=== PATIENT | male | born 1960 | race Caucasian/White ===

== ENCOUNTER 2017-04-15 08:30 | Inpatient (IN) | payer OTHER, MEDICARE ==
[~2017-04-15] VITALS: Ht 198.1 cm; Wt 110.1 kg
[~2017-04-15 08:30] MED LIST: ASPI81CH CHEW; GABA600T PO; METO25TA6 PO; SIMV20TA PO
[2017-04-18] MEDS ORDERED: OXYC-433 PO (11:03)
[2017-04-18] MEDS ORDERED: CARI350T25 PO (11:03)
[2017-04-18] MEDS ORDERED: CYCL1TAB29 PO (11:03)
[2017-04-19] MEDS ORDERED: POVIDONE IODINE 5% (ANTISEPSIS KIT) 4 APPLICATIONS EACH NARE PRN (07:00)
[2017-04-19] MEDS ORDERED: CHLORHEXIDINE GLUCONATE 2 % 1 PACK (2 CLOTHS) TOPICAL PRN (07:00)
[2017-04-19] MEDS ORDERED: LACTATED RINGER'S 1000 ML IV PRN (07:00)
[2017-04-19] MEDS ORDERED: SODIUM CHLORID 0.9% 500 ML IV PRN (07:00)
[2017-04-19] MEDS ORDERED: METOPROLOL TARTRATE 25 MG TAB PO PRN (07:00)
[2017-04-19] MEDS ORDERED: INSULIN HUMAN REGULAR 1,000 UNITS/10 ML VIAL SQ PRN (07:00)
[2017-04-19] MEDS ORDERED: THROMBIN (TOPICAL) 5,000 UNIT VIAL ONE (07:06)
[2017-04-19] MEDS ORDERED: GELFOAM SIZE 100 ONE (07:06)
[2017-04-19] MEDS ORDERED: ceFAZolin 2 GM PREMIX 50 ML ONE ×2 (07:06→12:36)
[2017-04-19] MEDS ORDERED: BUPIVACAINE HCL PF 0.5% 30 ML VIAL ONE (07:06)
[2017-04-19] MEDS ORDERED: GENTAMICIN SULFATE 80 MG/2 ML VIAL ONE (07:07)
[2017-04-19] MEDS ORDERED: VANCOMYCIN HCL 1000 MG ON-CALL/NS 250 ML IV SCH ×2 (07:15)
[2017-04-19 07:17] VITALS: BP 145/88; PULSE 76; RESP 18; TEMP 98.2; O2SAT 96
[2017-04-19] MEDS ORDERED: MIDAZOLAM HCL 5 MG/5 ML VIAL ONE (07:54)
[2017-04-19] MEDS ORDERED: ACETAMINOPHEN 1000 MG/100 ML VIAL IV ONE (07:54)
[2017-04-19] MEDS ORDERED: ARTIFICIAL TEARS OPTH OINT 3.5 APPLIC/3.5 GM TUBO ONE (07:54)
[2017-04-19] MEDS ORDERED: FAMOTIDINE 20 MG/2 ML VIAL ONE (07:54)
[2017-04-19] MEDS ORDERED: fentaNYL CITRATE 250 MCG/5 ML AMP ONE ×5 (07:54→14:10)
[2017-04-19] MEDS ORDERED: ceFAZolin INJ 1,000 MG VIAL IV ONE ×2 (08:54→12:55)
--- NOTE | 2017-04-19 09:52 | PD.CONS ---
[facility] Service Urology Consult Requested By Primary Care Physician No Primary Care Physician Diagnosis: History of Present Illness 57-year-old male admitted to undergo elective laminectomy by . Urology was consult and after the nursing staff placed a traumatic Valencia catheter. The patient is currently under general anesthesia and I am unable to take a history and physical at this time. A Valencia was advanced and clear urine was noted to drain. There was blood noted around the catheter at the urethral meatus. Review of Systems ROS Limitations: Intubated Past Family Social History Past Medical History Unable to obtain due to under general anesthesia Past Surgical History Unable to obtain due to under general anesthesia Allergies: Coded Allergies: No Known Allergies (Unverified , 04/19/17) Family History Unable to obtain due to under general anesthesia Social History Unable to obtain due to under general anesthesia Physical Exam Vital Signs Date Time Temp Pulse Resp B/P Pulse Ox O2 Delivery O2 Flow Rate FiO2 04/19/17 07:17 98.2 76 18 145/88 96 Physical Exam GENERAL: This is a well-nourished, well-developed patient, in no apparent distress. SKIN: No rashes, ecchymoses or lesions. Cool and dry. HEAD: Atraumatic. Normocephalic. No temporal or scalp tenderness. EYES: Pupils equal round and reactive. No scleral icterus. No injection or drainage. ENT: Nose without bleeding, purulent drainage or septal hematoma. Throat without erythema, tonsillar hypertrophy or exudate. Airway patent and intubated NECK: Trachea midline. No JVD or lymphadenopathy. Supple, nontender, no meningeal signs. CARDIOVASCULAR: Regular rate and rhythm without murmurs, gallops, or rubs. RESPIRATORY: Clear to auscultation. Breath sounds equal bilaterally. No wheezes , rales, or rhonchi. GASTROINTESTINAL: Abdomen soft, non-tender, nondistended. No hepato-splenomegaly , or palpable masses. No guarding. GENITOURINARY: Uncircumcised phallus with blood at the meatus with Valencia catheter in position draining pink tinged urine. MUSCULOSKELETAL: Extremities without clubbing, cyanosis, or edema. No joint tenderness, effusion, or edema noted. No calf tenderness. Negative Homans sign bilaterally. NEUROLOGICAL: Cremasterics reflex intact Laboratory Tests Test 04/19/17 07:15 Blood Type A POSITIVE Antibody Screen NEGATIVE Blood Bank Comment Assessment and Plan Assessment and Plan 57-year-old male admitted to undergo laminectomy by Dr. Hutchins. Traumatic Valencia placement in OR. Valencia catheter now draining clear urine and in good position. Maintain Valencia catheter for 1 week to allow for urethral healing. Patient may follow up in the office in one week if he is discharged prior to this time for a void trial. Thank you for the consult and for allowing me to participate in the care of this patient. Elfego Shane DO Apr 19, 2017 09:52
[2017-04-19] MEDS ORDERED: MORPHINE SULFATE 4 MG/ML INJ IV PUSH PRN (10:00)
[2017-04-19] MEDS ORDERED: ACETAMINOPHEN 325 MG TAB PO PRN (10:00)
[2017-04-19] MEDS ORDERED: SODIUM CHLORIDE 0.9% FLUSH 5 ML FLUSH IVF PRN (10:00)
[2017-04-19] MEDS ORDERED: KETAMINE HCL 500 MG/5 ML VIAL ONE (10:42)
[2017-04-19] MEDS ORDERED: PHENYLEPH/NS 1000 MCG/10 ML SYR IV ONE (12:00)
[2017-04-19] MEDS ORDERED: LACTATED RINGER'S 1000 ML INJ 2,000 ML IV ONE (12:00)
[2017-04-19] MEDS ORDERED: ONDANSETRON HCL 4 MG/2 ML VIAL IV PUSH ONE (12:00)
[2017-04-19] MEDS ORDERED: PROPOFOL 200 MG/20 ML AMP IV ONE (12:00)
[2017-04-19] MEDS ORDERED: ceFAZolin INJ 1,000 MG VIAL ONE (12:36)
[2017-04-19] MEDS ORDERED: DO NOT ADM ANY ANTICOAGULANT DRUGS PRN (13:59)
--- NOTE | 2017-04-19 14:02 | RADRPT ---
EXAM DATE/TIME: 04/19/2017 10:08 [place] COMPARISON: No previous studies available for comparison. INDICATIONS : Post-op L1-L2 posterior lumbar fusion. MEDICAL HISTORY : None. SURGICAL HISTORY : None. ENCOUNTER: Initial ACUITY: 1 day PAIN SCORE: Non-responsive. LOCATION: Lumbar spine. FINDINGS: Multiple intraoperative view examination was performed. There is a fusion I suspect at L2-3 with inte rpedicular screws bilaterally. CONCLUSION: Unremarkable limited examination of the lumbar spine status post fusion at L2-3. Geovanni Fox MD on April 19, 2017 at 13:59 Board Certified Radiologist. This report was verified electronically.
[2017-04-19] MEDS ORDERED: *MEPERIDINE 25 MG INJ VIAL PERIprocedural Use ONLY ONE (14:11)
[2017-04-19] MEDS ORDERED: *morphine SULFATE 8 MG/ML PERIprocedure ONLY ONE ×2 (14:20→14:36)
[2017-04-19] MEDS: NS + KCL 20 MEQ INJ 1,000 ML IV SCH ×2 (14:31→21:52)
[2017-04-19] MEDS: CARISOPRODOL 350 MG TAB PO SCH ×2 (14:56→18:20)
[2017-04-19] MEDS: GABAPENTIN 300 MG CAP PO SCH ×2 (14:56→18:20)
--- NOTE | 2017-04-19 15:01 | PD.OP ---
Operative Report Date of Surgery: Apr 19, 2017 Preoperative Diagnosis: Severe lumbar spondylosis Postoperative Diagnosis: Severe lumbar spondylosis Procedure: Minmally invasive L1-L2 laminectomy, interbody arthrodhesis using PEEK cage and autologous bone graft, L1-L2 instrumental fixation using transpedicular screws and rods, L1-L2 posterolateral fusion using autologous bone graft and demineralized bone matrix. Microsurgical dissection Anesthesia: GENERAL Surgeon: Hai Hutchins Mental Telepathist(s): ALBERTO MANUEL Operation and Findings: INDICATIONS FOR THE SURGICAL PROCEDURE Me Escalona is a 57 year-old male who presented with intractable mechanical back pain and tamica evidence of L2 lower extremity radiculopathy. He had severe spondylosis with collapse of the disk L1-2 and a disk protusion with significant facet arhtropathy. He failed maximum nonsurgical management including multiple modalities of conservative treatment as well as pain management interventions by an interventional pain specialist. A surgical decompression and arthrodhesis were indicated as a last resort. The [id number] details of the procedure, indications, alternatives, risks and potential complications were fully discussed with the patient. The patient fully understood. All the questions were answered. No guarantees were given. The patient voiced requesting the procedure and provided informed consents. The patient was offered the alternative of delaying the procedure and continuing with nonsurgical management. DETAILS OF THE SURGICAL PROCEDURE Prior to the procedure, the surgical incision was marked in the preoperative surgical holding room, and the procedure, risks, and potential complications revisited with the patient. Placement of electrodes for intraoperative neurophysiological monitoring was completed. The patient was taken to the operative room, and following induction of general anesthesia, endotracheal intubation was performed. A Valencia catheter, bilateral BELTRAN hose and sequential compression devices were placed and kept throughout the procedure. The patient was positioned prone, over a Layo table over a bolsters. All pressure in the preoperative surgical holding room points were carefully padded with eggcrate and gel mattress. The eyes were tapped shut after ointment was applied by the anesthesiologist to prevent corneal abrasion. A Sandra hugger was placed over the expossed lower body to maintain control of the core body temperature. The electrophysiological team placed the needles and electrodes in their proper location and baseline SSEP's and EMG potentials were registered. The entrance to each pedicles was marked using a C arm. The lumbar region was prepped and draped in the usual sterile fashion. The surgical procedure was performed in several steps as follow: SURGICAL APPROACH Once the patient was positioned, a localizing cross-table lateral x-ray was performed with a C-arm. Two paramedian small incisions were outlined on the skin approximately 3cm from the midline. The skin incisions were made with a # 10 blade. Small bleeders were controlled with the cautery. The dissection was then carried out into deper planes and through the thoracolumbar fascia with a Bovie. The intermuscular septum was identified and the myscles were blunted dissected along the septum. The facets and transverse process of L1-L2 were exposed and the proper anatomical landmarks were identidied. A microsurgical self-retaining retractor was placed on the incision, and a localizing lateralizing cross-table x-ray was performed with an instrument underneath a lamina of the lumbar spine. INSTRUMENTAL FIXATION At this point in the procedure, placement of bilateral transpedicular screws was necessary for stabilization of the spine. Initially, the entry point for the screw was selected anatomically at the junction of the facet, with the transverse process, and the pars interarticularis at L1 and L2. This was started with a Giamshetti needle followed by the use of a patricio wire. A tap was used to create the threads for the screws. Finally bilateral transpedicular screws were carefully placed bilaterally at L1 and L2 under fluoroscopic visualization. An appropriate purchase was achieved with all screws. The position of each screw was assessed anatomically with an AP, lateral , oblique Xrays. An intraoperative scan view of the spine was then performed using the iso-centric c-arm. Each screw was then assessed electrophysiologically stimulating each screw with a nerve stimulator. SURGICAL DECOMPRESSION There was significant mass effect with compression of the neural structures. In order to relieve neural compression, it was necessary to perform a decompressive laminectomy, with decompression of the spinal canal and bilateral lateral recesses. Note that the scope of such decompression was significantly more extensive than the minimal exposure necessary to perform an interbody fusion, as there was extreme facet arthropathy with near complete collapse of the disk spaces and severe stenosis cause by the hyperthrophic joint facets. At this point of the procedure the operative microscope was draped in the usual sterile fashion and brought to the field. The rest of the surgical procedure was performed using microdissection technique with the exception of the closure. Under the operating microscope, a decompressive laminectomy was carried out at L1-L2. as follow: The laminae, base of the spinous processes and facets were carefully drilled exposing the ligamentum flavum. The facets were abnormal with severe spondylolisthesis and gross mechanical instability. A disk protusion was compressing the neural structures and exiting nerve roots. A near complete facetectomy was necessary resulting in further mechanical instability. The ligamentum flavum appeared hypertrophic, resulting on mass effect on the dorsal surface of the neural structures. The superior free border of the ligamentum flavum was elevated with a ligament dissector and the ligamentum flavum was removed with a 3 and 4 mm Kerrison forceps. The ligament was very adherent to the dural sac and during the dissection, and extreme care was taken during the dissection. The exiting nerve roots were identified, and a wide foraminotomy was performed with a Kerrison in their trajectory towards the neural foramen. Epidural veins located laterally to the dural sac were coagulated with the bipolar cautery, and then incised using microscissors. Gentle medial retraction of the dural sac allowed me to expose the disc space for the discectomy. Upon completion of the discectomy, an excellent decompression of the neural structures was achieved. Increased motion was noted consistent with mechanical instability. INTERBODY ARTHRODHESIS In order to correct the narrowing of the disk space and maintain distraction of the space, and to achieve a solid interbody fusion, it was necessary the insertion of an interbody device into the disk space. Otherwise, the disk space would collapse, compromising the result of the surgical procedure. At this point of the procedure, the annulus fibrosus of the disk was carefully coagulated with a bipolar cautery and incised using an 11 bladed knife. Then, a microdiscectomy was carried out in a standard fashion using a combination of straight and up-biting pituitary forceps. A reverse angle curette was applied underneath the posterior longitudinal ligament, and used to push the disk fragments into the disk space, so they can be safely removed with a pituitary forceps. Once the discectomy was completed, it was necessary to decorticate the endplates, in order to eliminate the cartilaginous endplate and to expose healthy bone appropriate to perform the interbody fusion. The endplates at L1 and L2 were then thoroughly decorticated using increasing size bone noelle and ring curets, eliminating the cartilaginous fragments from both, the superior and inferior endplates. A disk space distractor was applied to the pedicle screws and gentle distraction was applied. This maneuver was assisted by the use of a disk distractor. Increased motility was noted at the disk, which was consistent with instability due to facet arthropathy. Once a thorough preparation of the disk space was achieved, the disk space was irrigated with antibiotic solution, and the interbody fusion was performed by carefully impacting an expandable PPEK cage filled with autologous iliac crest bone graft. The cage was carefully expanded. A solid position of the cage with good purchase was achieved. The position of the cage was assessed anatomically with a probe and radiologically with the C-arm. POSTEROLATERAL FUSION The posterolateral fusion is a critical component to the procedure, to prevent future fatigue and failure of the instrumental fixation. Initially, the transverse processes of the vertebral bodies, lateral surface of the facets and the lateral gutters of the spine were carefully cleaned, eliminating all soft tissue and muscle attachments. The area was then irrigated with a large amount of antibiotic solution. Subsequently, the transverse processes, lateral surface of the facets, and lateral gutters of the spine at L1 and L2 were thoroughly decorticated using the TPS drill with a 5mm cutting sylvie, exposing cancellous bone, in preparation for the posterolateral fusion. The incision was again irrigated with antibiotic solution. Then, the posterolateral fusion was then performed by carefully packing the lateral gutters of the spine at L4-L5 with autologous iliac crest bone combined with demineralized bone matrix. I packed as much bone as possible. COMPLETION OF THE INSTRUMENTATION AND CLOSURE The rods were brought to the field, applied to all the screws, and the screw caps were sequentially applied. Compression was performed between the pedicle screws, and final tightening of the screws was completed using a torque wrench. The incision was again thoroughly irrigated with several liters of antibiotic solution, and hemostasis secured with the bipolar cautery. A Valsalva Maneuver performed by the anesthesiologist failed to show any evidence of cerebrospinal fluid leak or bleeding. A 7 mm Layo-Grace drain was left in the epidural space and externalized through a separate stab incision. The incision was then closed in planes. 0 Vicryl was used in an interrupted fashion to close the thoracolumbar fascia and the superficial fascia. The subcutaneous tissue was then approximated using 3-0 Vicryl in an interrupted fashion. Special care was taken to avoid space. The skin was then closed with 4-0 Vicryl in a running, subcuticular fashion. Dermabond was applied to the skin. Each plane of closure was irrigated with antibiotic solution. At the end of the procedure the sponge, needle and instrument counts were all correct. Estimated blood loss was 250 cc. No blood transfusion was given. The entire procedure was performed using continuous electrophysiological monitoring of the somatosensorial evoked potentials and EMG. The patient received prophylactic antibiotics. The patient was then extubated and transferred to the recovery room in stable condition. Hai Hutchins MD Apr 19, 2017 15:01
[2017-04-19] MEDS ORDERED: OXYC-433 PO (15:24)
[2017-04-19] MEDS ORDERED: ceFAZolin 2 GM PREMIX 50 ML IV SCH (17:00)
[2017-04-19] MEDS: MORPHINE SULFATE 4 MG/ML INJ IV PUSH PRN ×2 (19:55→23:27)
[2017-04-19 20:00] VITALS: BP 128/77; PULSE 97; RESP 20; TEMP 99.2; O2SAT 95
[2017-04-19] MEDS ORDERED: NALOXONE HCL 0.4 MG/ML AMP IV PRN (20:15)
[2017-04-19] MEDS: SODIUM CHLORIDE 0.9% FLUSH 5 ML FLUSH IVF SCH (21:51)
[2017-04-19] MEDS: CYCLOBENZAPRINE HCL 10 MG TAB PO SCH (21:51)
[2017-04-19] MEDS: ceFAZolin 2 GM PREMIX 50 ML IV SCH (21:51)
[2017-04-19] MEDS: PRAVASTATIN SOD 40 MG TAB PO SCH (21:51)
[2017-04-19] MEDS: METOPROLOL SUCCINATE 25 MG EXTENDED RELEASE TAB PO SCH (21:51)
[2017-04-19] MEDS: oxyCODONE/ACETAMINOPHEN 10 MG/325 MG TAB PO PRN (21:51)
[2017-04-19] MEDS ORDERED: diphenhydrAMINE HCL 50 MG/ML VIAL IV PRN (22:00)
[2017-04-19] MEDS: PCA - TOTAL MG DILAUDID DELIVERED PER SHIFT SCH (22:27)
[2017-04-19] MEDS: HYDROmorphone HCL PCA 6 MG/30 ML IV SCH (23:07)
[2017-04-20] VITALS: BP 139/69; PULSE 97; RESP 20; TEMP 99.7; O2SAT 95
[2017-04-20] MEDS: HYDROmorphone HCL PCA 6 MG/30 ML IV SCH ×6 (00:47→21:49)
[2017-04-20 04:00] VITALS: BP 127/75; PULSE 89; RESP 20; TEMP 99.4; O2SAT 94
[2017-04-20] MEDS: oxyCODONE/ACETAMINOPHEN 10 MG/325 MG TAB PO PRN ×4 (04:13→17:20)
[2017-04-20] MEDS: ceFAZolin 2 GM PREMIX 50 ML IV SCH ×2 (04:13→12:18)
[2017-04-20] MEDS: NS + KCL 20 MEQ INJ 1,000 ML IV SCH ×2 (06:17→11:23)
[2017-04-20] MEDS: PCA - TOTAL MG DILAUDID DELIVERED PER SHIFT SCH ×3 (06:17→22:00)
[2017-04-20] MEDS: SODIUM CHLOR 0.9% 1000 ML INJ 1,000 ML IV SCH (07:09)
[2017-04-20] MEDS: PANTOPRAZOLE SODIUM 40 MG VIAL IVP SCH (07:22)
[2017-04-20] MEDS: SODIUM CHLORIDE 0.9% FLUSH 5 ML FLUSH IVF SCH ×2 (07:22→21:00)
[2017-04-20] MEDS: CARISOPRODOL 350 MG TAB PO SCH ×3 (07:24→17:20)
[2017-04-20] MEDS: GABAPENTIN 300 MG CAP PO SCH ×3 (07:24→17:20)
[2017-04-20 08:00] VITALS: BP 143/82; PULSE 89; RESP 19; TEMP 99; O2SAT 95
[2017-04-20 08:26] LABS: AUTOMATED NEUTROPHIL # 8.5 TH/MM3 (1.8-7.7); BASOPHIL % 0.2 % (0.0-2.0); EOSINOPHIL % 0.1 % (0.0-4.0); HEMATOCRIT 39.2 % (39.0-51.0); HEMO FLAGS DIFF FINAL; LYMPH % 20.7 % (9.0-44.0); LYMPHOCYTE # 2.5 TH/MM3 (1.0-4.8); MEAN CELL VOLUME 90.6 FL (80.0-100.0); MEAN CORPUSCULAR HEMOGLOBIN 30.8 PG (27.0-34.0); MONO % 8.6 % (0.0-8.0); NEUT % 70.4 % (16.0-70.0); PLATELET COUNT 180 TH/MM3 (150-450); RED BLOOD COUNT 4.32 MIL/MM3 (4.50-5.90); RED CELL DISTRIBUTION WIDTH 13.7 % (11.6-17.2)
[2017-04-20 08:59] LABS: BICARBONATE 25.6 MEQ/L (21.0-32.0); POTASSIUM 3.8 MEQ/L (3.5-5.1)
--- NOTE | 2017-04-20 09:45 | HHI.NSPN ---
(Augusta Eaton) Note Status Status: Progress Note (Augusta Eaton) Interval History Interval History Mr. Escalona is a 57 y/o male s/p minimally invasive L1-L2 laminectomy, interbody arthrodesis using PEEK cage and autologous bone graft, L1-L2 instrumental fixation using transpedicular screws and rods, L1-L2 posterolateral fusion using autologous bone graft and demineralized bone matrix. Microsurgical dissection on April 19, 2017. 04/20: POD 1, moderate surgical pain worse with movement, using CHEMICAL TANK WORKER pump. denies chest pain, SOB. (Augusta Eaton) Labs, Micro, & Vital Signs Results Date Time Temp Pulse Resp B/P Pulse Ox O2 Delivery O2 Flow Rate FiO2 04/20/17 08:00 99.0 89 19 143/82 95 04/20/17 07:31 16 04/20/17 06:17 20 04/20/17 04:22 20 04/20/17 04:00 99.4 89 20 127/75 94 04/20/17 03:47 21 04/20/17 01:39 18 04/20/17 00:47 18 04/20/17 00:00 99.7 97 20 139/69 95 04/19/17 20:00 99.2 97 20 128/77 95 04/19/17 17:00 98.2 92 18 140/71 95 Nasal Cannula 2 04/19/17 16:00 86 16 133/66 93 Nasal Cannula 2 04/19/17 15:30 89 19 149/83 94 Nasal Cannula 2 04/19/17 15:00 81 18 140/82 95 Nasal Cannula 2 04/19/17 14:45 81 21 127/78 95 Nasal Cannula 2 04/19/17 14:30 79 22 131/75 95 Nasal Cannula 2 04/19/17 14:15 80 20 136/77 95 Nasal Cannula 2 04/19/17 14:01 99.1 83 16 129/89 94 Nasal Cannula 2 04/20/17 07:00 Intake Total 3440 ml Output Total 3070 ml Balance 370 ml Constitutional Vital Signs Date Time Temp Pulse Resp B/P Pulse Ox O2 Delivery O2 Flow Rate FiO2 04/20/17 08:00 99.0 89 19 143/82 95 04/20/17 07:31 16 04/20/17 06:17 20 04/20/17 04:22 20 04/20/17 04:00 99.4 89 20 127/75 94 04/20/17 03:47 21 04/20/17 01:39 18 04/20/17 00:47 18 04/20/17 00:00 99.7 97 20 139/69 95 04/19/17 20:00 99.2 97 20 128/77 95 04/19/17 17:00 98.2 92 18 140/71 95 Nasal Cannula 2 04/19/17 16:00 86 16 133/66 93 Nasal Cannula 2 04/19/17 15:30 89 19 149/83 94 Nasal Cannula 2 04/19/17 15:00 81 18 140/82 95 Nasal Cannula 2 04/19/17 14:45 81 21 127/78 95 Nasal Cannula 2 04/19/17 14:30 79 22 131/75 95 Nasal Cannula 2 04/19/17 14:15 80 20 136/77 95 Nasal Cannula 2 04/19/17 14:01 99.1 83 16 129/89 94 Nasal Cannula 2 04/20/17 07:00 Intake Total 3440 ml Output Total 3070 ml Balance 370 ml (Augusta Eaton) Review of Systems/Exam Exam Mr. Escalona alert, in no apparent distress. Speech is fluent. EDVIN drain with moderate serosanguineous drainage. Cranial nerve examination: pupils equal, round and reactive to light. Extra- ocular movements are intact. Facial motor are normal and symmetrical. Gross hearing appears intact. Muscle strength is 5/5 to both upper extremities. 4/5 proximal LE limited due to surgical pain, 5/5 distal LE. Sensory examination is intact to light touch lower extremities. (Augusta Eaton) Medications Current Medications Current Medications Medications (Trade) Dose Ordered Sig/Stephanie Route PRN Reason Start Time Stop Time Status Last Admin Dose Admin Lactated Ringer's 1,000 ml @ 30 mls/hr Q24H PRN IV SEE LABEL COMMENTS 04/19/17 07:00 04/22/17 06:59 04/19/17 07:00 Sodium Chloride 500 ml @ 30 mls/hr [id number] PRN IV SEE LABEL COMMENTS 04/19/17 07:00 04/22/17 06:59 Sodium Chloride 1,000 ml @ 30 mls/hr Q24H IV 04/19/17 07:15 Potassium Chloride/Sodium Chloride (NS + KCl 20 Meq Inj) 1,000 ml @ 100 mls/hr Q10H IV 04/19/17 11:00 04/19/17 21:52 IV Flush (NS Flush) 2 ml UNSCH PRN IVF FLUSH AFTER USING IV ACCESS 04/19/17 10:00 IV Flush (NS Flush) 2 ml BID IVF 04/19/17 21:00 Pantoprazole Sodium (Protonix Inj) 40 mg DAILY IVP 04/20/17 09:00 04/20/17 07:22 Morphine Sulfate (Morphine Inj) 2 mg Q2H PRN IV PUSH PAIN SCALE 1 TO 6 04/19/17 10:00 Morphine Sulfate (Morphine Inj) 4 mg Q2H PRN IV PUSH PAIN SCALE 7 TO 10 04/19/17 10:00 04/19/17 23:27 Acetaminophen (Tylenol) 650 mg Q4H PRN PO TEMPERATURE > 101.5 F 04/19/17 10:00 Carisoprodol (Soma) 350 mg TID PO 04/19/17 13:00 04/20/17 07:24 Cyclobenzaprine HCl (Flexeril) 10 mg HS PO 04/19/17 21:00 04/19/17 21:51 Gabapentin (Neurontin) 600 mg TID PO 04/19/17 13:00 04/20/17 07:24 Metoprolol Succinate (Toprol Xl) 25 mg HS PO 04/19/17 21:00 04/19/17 21:51 Oxycodone/ Acetaminophen (Percocet 10-325 Mg) 1 tab Q4H PRN PO PAIN 1-10 04/19/17 10:15 04/20/17 08:50 Pravastatin Sodium (Pravachol) 40 mg HS PO 04/19/17 21:00 04/19/17 21:51 Miscellaneous Information ALL NURSING DEPARTME... UNSCH PRN .XX SEE LABEL COMMENTS 04/19/17 13:59 04/20/17 13:58 Cefazolin Sodium/ Dextrose (Ancef 2 Gm Premix) 50 ml @ 100 mls/hr Q8H IV 04/19/17 21:00 04/20/17 13:29 04/20/17 04:13 Naloxone HCl (Narcan Inj) 0.4 mg UNSCH PRN IV RESPIRATORY RATE LESS THAN 10 04/19/17 20:15 Diphenhydramine HCl (Benadryl Inj) 25 mg Q6H PRN IV ITCHING 04/19/17 22:00 Hydromorphone HCl (Dilaudid CHEMICAL TANK WORKER Inj) 6 mg UNSCH IV 04/19/17 20:15 04/20/17 07:31 CHEMICAL TANK WORKER Dosage Infused (Pha) 1 Q8HR .XX 04/19/17 22:00 04/20/17 06:17 (Augusta Eaton) Medical Decision Making MDM Remarks 57 y/o male s/p L1-2 laminectomy with interbody arthrodesis using PEEK cage bone graft, transpedicular screws and rods on 04/19/17, POD 1, moderate surgical pain, neuro stable (Augusta Eaton) Plan Plan Remarks cont CHEMICAL TANK WORKER pump for pain control TLSO when out of bed cont therapy, encourage mobilization, IS every hour SCDs and TEDs for dvt prophylaxis appreciate medical management assistance (Augusta Eaton) Attending Statement The exam, history, and the medical decision-making described in the above note were completed with the assistance of the mid-level provider. I reviewed and agree with the findings presented. I attest that I had a [id number] encounter with the patient on the same day, and personally performed and documented my assessment and findings in the medical record. (Hai Hutchins MD) Augusta Eaton Apr 20, 2017 09:45 Hai Hutchins MD Apr 22, 2017 16:39
[2017-04-20 12:00] VITALS: BP 127/76; PULSE 86; RESP 18; TEMP 98.2; O2SAT 92
--- NOTE | 2017-04-20 13:51 | PD.CONS ---
HPI Service [facility] Consult Requested By DR. Hutchins Reason for Consult medical management Primary Care Physician No Primary Care Physician Diagnoses: History of Present Illness 57-year-old male with past medical history of hypertension, hyperlipidemia and chronic back pain comes in for elective surgery for his back. He states that he had a prior surgery in 2011 for his back however he continued to have back pain. He has been seeing a pain management doctor who recommended that he be reevaluated by neurosurgery. After failing conservative management and pain management, he opted for surgical intervention, he denied any pain down his legs , urinary or bowel incontinence. Currently he is having pain however is controlled with pain medication. Denies any chest pain, shortness of breath, nausea or vomiting. Review of Systems Except as stated in HPI: all other systems reviewed are Neg Past Family Social History Allergies: Coded Allergies: No Known Allergies (Unverified , 04/19/17) Past Medical History Hypertension, hyperlipidemia and back pain Past Surgical History Cholecystectomy, appendectomy, back surgery 2011. Reported Medications Reported Meds & Active Scripts Active Oxycodone-Acetaminophen 10-325 mg Tab 1 Tab PO Q4H PRN Reported Flexeril (Cyclobenzaprine HCl) 10 Mg Tab 10 Mg PO HS Carisoprodol 350 Mg Tablet 350 Mg PO TID Aspirin 81 Mg Chew 81 Mg CHEW DAILY Gabapentin 600 Mg Tab 600 Mg PO TID Simvastatin 20 Mg Tab 20 Mg PO HS 90 Days Metoprolol Succinate ER 24 HR (Metoprolol Succinate) 25 Mg Tab 25 Mg PO HS 90 Days Family History Mother of breast cancer. Father had diabetes Social History Quit smoking 4 weeks prior to this surgery. Used to smoke a pack a day for 20 years. Drinks rarely. Denies illegal drug use Physical Exam Vital Signs Vital Signs Date Time Temp Pulse Resp B/P Pulse Ox O2 Delivery O2 Flow Rate FiO2 04/20/17 13:09 16 04/20/17 12:00 98.2 86 18 127/76 92 04/20/17 11:28 16 04/20/17 08:00 99.0 89 19 143/82 95 04/20/17 07:31 16 04/20/17 06:17 20 04/20/17 04:22 20 04/20/17 04:00 99.4 89 20 127/75 94 04/20/17 03:47 21 04/20/17 01:39 18 04/20/17 00:47 18 04/20/17 00:00 99.7 97 20 139/69 95 04/19/17 20:00 99.2 97 20 128/77 95 04/19/17 17:00 98.2 92 18 140/71 95 Nasal Cannula 2 04/19/17 16:00 86 16 133/66 93 Nasal Cannula 2 04/19/17 15:30 89 19 149/83 94 Nasal Cannula 2 04/19/17 15:00 81 18 140/82 95 Nasal Cannula 2 04/19/17 14:45 81 21 127/78 95 Nasal Cannula 2 04/19/17 14:30 79 22 131/75 95 Nasal Cannula 2 04/19/17 14:15 80 20 136/77 95 Nasal Cannula 2 04/19/17 14:01 99.1 83 16 129/89 94 Nasal Cannula 2 Physical Exam GENERAL: This is a well-nourished, well-developed patient, laying on his right side. SKIN: No rashes, ecchymoses or lesions. Cool and dry. HEAD: Atraumatic. Normocephalic. No temporal or scalp tenderness. EYES: Pupils equal round and reactive. Extraocular motions intact. No scleral icterus. No injection or drainage. ENT: Nose without drainage. Throat without erythema, tonsillar hypertrophy or exudate. Uvula midline. Airway patent. NECK: Trachea midline. No JVD CARDIOVASCULAR: Regular rate and rhythm without murmurs. RESPIRATORY: Clear to auscultation. Breath sounds equal bilaterally. No wheezes. GASTROINTESTINAL: Abdomen soft, non-tender, nondistended. No palpable masses. No guarding. MUSCULOSKELETAL: Extremities without edema. No calf tenderness. Negative Homans sign bilaterally. NEUROLOGICAL: Awake and alert. Cranial nerves II through XII intact. Motor and sensory grossly within normal limits. Five out of 5 muscle strength in all muscle groups. Normal speech. Laboratory Laboratory Tests Test 04/20/17 07:22 White Blood Count 12.0 Red Blood Count 4.32 Hemoglobin 13.3 Hematocrit 39.2 Mean Corpuscular Volume 90.6 Mean Corpuscular Hemoglobin 30.8 Mean Corpuscular Hemoglobin 34.0 Concent Red Cell Distribution Width 13.7 Platelet Count 180 Mean Platelet Volume 8.6 Neutrophils (%) (Auto) 70.4 Lymphocytes (%) (Auto) 20.7 Monocytes (%) (Auto) 8.6 Eosinophils (%) (Auto) 0.1 Basophils (%) (Auto) 0.2 Neutrophils # (Auto) 8.5 Lymphocytes # (Auto) 2.5 Monocytes # (Auto) 1.0 Eosinophils # (Auto) 0.0 Basophils # (Auto) 0.0 CBC Comment DIFF FINAL Differential Comment Sodium Level 130 Potassium Level 3.8 Chloride Level 99 Carbon Dioxide Level 25.6 Anion Gap 5 Blood Urea Nitrogen 11 Creatinine 0.84 Estimat Glomerular Filtration 95 Rate Random Glucose 121 Calcium Level 8.2 Result Diagram: 04/20/17 0722 04/20/17 0722 Imaging Last Impressions Lumbar Spine X-Ray 04/19/17 0000 Signed Impressions: Service Date/Time: Wednesday, April 19, 2017 10:08 - CONCLUSION: Unremarkable limited examination of the lumbar spine status post fusion at L2-3. Geovanni Fox MD Assessment and Plan Assessment and Plan Back pain: Patient is status post Minmally invasive L1-L2 laminectomy, interbody arthrodhesis using PEEK cage and autologous bone graft, L1-L2 instrumental fixation using transpedicular screws and rods, L1-L2 posterolateral fusion using autologous bone graft and demineralized bone matrix. Microsurgical dissection. Postop day 1. Continue pain management, anticoagulation, antibiotics, and rehabilitation per neurosurgery. HTN: stable, home med has been resumed. vasotec prn, heart healthy diet hyperlipidemia: home med resumed. DVT proph: per neurosx Thank you for your consultation, will continue to follow. Code Status full Discussed Condition With patient Caterina Lozano MD Apr 20, 2017 13:51
[2017-04-20] MEDS ORDERED: DOCUSATE SODIUM 50 MG/SENNA 8.6 MG TAB PO PRN (14:00)
[2017-04-20] MEDS ORDERED: MAGNESIUM HYDROXIDE SUSP 30 ML CUP PO PRN (14:00)
[2017-04-20] MEDS ORDERED: ENALAPRILAT 1.25 MG/ML VIAL IV PUSH PRN (14:00)
[2017-04-20 16:00] VITALS: BP 120/72; PULSE 89; RESP 16; TEMP 98.4; O2SAT 91
[2017-04-20 20:00] VITALS: BP 140/83; PULSE 92; RESP 20; TEMP 98.5; O2SAT 96
[2017-04-20] MEDS: METOPROLOL SUCCINATE 25 MG EXTENDED RELEASE TAB PO SCH (21:49)
[2017-04-20] MEDS: CYCLOBENZAPRINE HCL 10 MG TAB PO SCH (21:50)
[2017-04-20] MEDS: PRAVASTATIN SOD 40 MG TAB PO SCH (21:50)
[2017-04-21] VITALS: BP 149/74; PULSE 98; RESP 20; TEMP 100.3; O2SAT 92
[2017-04-21] MEDS: HYDROmorphone HCL PCA 6 MG/30 ML IV SCH ×2 (01:17→05:48)
[2017-04-21 04:00] VITALS: BP 138/78; PULSE 96; RESP 20; TEMP 99.4; O2SAT 92
[2017-04-21] MEDS: NS + KCL 20 MEQ INJ 1,000 ML IV SCH (05:18)
[2017-04-21] MEDS: PCA - TOTAL MG DILAUDID DELIVERED PER SHIFT SCH (06:00)
[2017-04-21] MEDS: SODIUM CHLOR 0.9% 1000 ML INJ 1,000 ML IV SCH (07:15)
[2017-04-21 07:55] VITALS: BP 149/91; PULSE 83; RESP 18; TEMP 98.6; O2SAT 94
[2017-04-21] MEDS: SODIUM CHLORIDE 0.9% FLUSH 5 ML FLUSH IVF SCH (08:46)
[2017-04-21] MEDS: CARISOPRODOL 350 MG TAB PO SCH (08:51)
[2017-04-21] MEDS: PANTOPRAZOLE SODIUM 40 MG VIAL IVP SCH (08:52)
[2017-04-21] MEDS: GABAPENTIN 300 MG CAP PO SCH (08:52)
[2017-04-21] MEDS: oxyCODONE/ACETAMINOPHEN 10 MG/325 MG TAB PO PRN (08:52)
[2017-04-21] MEDS ORDERED: POLYETHYLENE GLYCOL 17 GM PKG PO SCH (09:00)
--- NOTE | 2017-04-21 09:48 | HHI.DCPOC ---
Discharge Care Plan Diagnosis: (1) S/P lumbar spinal fusion Goals to Promote Your Health * To prevent worsening of your condition and complications * To maintain your health at the optimal level Directions to Meet Your Goals Take your medications as prescribed Follow your dietary instruction Follow activity as directed Keep your appointments as scheduled Take your immunizations and boosters as scheduled If your symptoms worsen call your PCP, if no PCP go to Urgent Care Center or Emergency Room Smoking is Dangerous to Your Health. Avoid second hand smoke Call the 24-hour hour crisis hotline for domestic abuse at [place] [place] Apr 21, 2017 09:48
--- NOTE | 2017-04-21 09:48 | HHI.FF ---
Face to Face Verification Diagnosis: (1) S/P lumbar spinal fusion Physical Therapy Order: Improve ambulation (gentle leg exercises as patient tolerates) Home Health Nursing Order: Signs/symptoms of disease process Wound care and dressing changes Nursing assessment with vital signs Milligan catheter maintenance (pt will follow up with Urologist for discontinuation of milligan) I have seen patient Wilfredo Escalona on 04/21/17. My clinical findings support the need for the requested home health care services because: Deconditioned w/ increased weakness High risk of falls I certify that my clinical findings support that this patient is homebound because: Post-op weakness Unsteady gait/balance [place] Eaton Apr 21, 2017 09:48
--- NOTE | 2017-04-21 11:34 | HHI.PR ---
Subjective Remarks Follow-up for lumbar laminectomy. The patient is seen with at bedside. The patient states that he is getting ready to go home. Denies any acute complaints, concerns. He didn't sleep great last night. He has been ambulatory. The patient did have to have a Valencia catheter placed by urology due to an enlarged prostate. The patient states that his PCP does monitor his prostate with exams and lab work, and he plans to follow-up. Home health nursing has been ordered by attending to maintain Valencia. Objective Vitals Vital Signs Date Time Temp Pulse Resp B/P Pulse Ox O2 Delivery O2 Flow Rate FiO2 04/21/17 07:55 98.6 83 18 149/91 94 04/21/17 04:00 99.4 96 20 138/78 92 04/21/17 00:00 100.3 98 20 149/74 92 04/20/17 21:49 19 04/20/17 20:00 98.5 92 20 140/83 96 04/20/17 16:00 98.4 89 16 120/72 91 04/20/17 14:48 16 04/20/17 13:09 16 04/20/17 12:00 98.2 86 18 127/76 92 I/O 04/20/17 04/20/17 04/20/17 04/21/17 04/21/17 04/21/17 06:59 14:59 22:59 06:59 14:59 22:59 Intake Total 50 ml 1133 ml 240 ml 150 ml Output Total 750 ml 800 ml 500 ml 900 ml Balance -750 ml -750 ml 633 ml -660 ml 150 ml Intake Oral 480 ml 240 ml IV Total 50 ml 653 ml 150 ml Output Urine Total 750 ml 800 ml 500 ml 900 ml # Bowel Movements 0 0 0 Result Diagram: 04/20/17 0722 04/20/17 0722 Imaging Last Impressions Lumbar Spine X-Ray 04/19/17 0000 Signed Impressions: Service Date/Time: Wednesday, April 19, 2017 10:08 - CONCLUSION: Unremarkable limited examination of the lumbar spine status post fusion at L2-3. Geovanni Fox MD Objective Remarks GENERAL: Well-developed well-nourished obese. In no acute distress. SKIN: Warm and dry. No lesions noted. HEENT: Normocephalic. Pupils equal and round. Mucous membranes pink and moist. CARDIOVASCULAR: Regular rate and rhythm. No murmur appreciated. RESPIRATORY: No accessory muscle use. Clear to auscultation. Breath sounds equal bilaterally. GASTROINTESTINAL: Abdomen soft, non-tender, nondistended. Bowel sounds x4. Valencia catheter in place. MUSCULOSKELETAL: No obvious deformities. No clubbing or cyanosis. No edema. NEUROLOGICAL: Awake and alert. No focal neurological deficits. Moves upper and lower extremities spontaneously. Normal speech. PSYCHIATRIC: Appropriate mood and affect; insight and judgment normal. A/P Assessment and Plan Back pain: Patient is status post Minmally invasive L1-L2 laminectomy, interbody arthrodhesis using PEEK cage and autologous bone graft, L1-L2 instrumental fixation using transpedicular screws and rods, L1-L2 posterolateral fusion using autologous bone graft and demineralized bone matrix. Microsurgical dissection. Postop day 1. Continue pain management, anticoagulation, antibiotics, and rehabilitation per neurosurgery. BPH: Valencia catheter placed by urology, Dr. Shane. Patient to follow-up with urology as outpatient.. [facility] nursing ordered for Valencia care. HTN: stable, home med has been resumed. vasotec prn, heart healthy diet hyperlipidemia: home med resumed. DVT proph: per neurosx Discharge Planning Discharge planning per attending neurosurgery team. Hospitalist clear for discharge at this time. Attending Statement Patient already discharge by Attending physician, evaluated and discussed with ADRIANA urias to discharge from Medicine standpoint. Zafar Bazzi Apr 21, 2017 11:33 Anirudh Humphries MD Apr 21, 2017 13:43
== END 2017-04-21 12:14 | disposition home health service (06) | DRG 460 ==
LOC: HSDI 04-19 06:34 → N05A 04-19 17:43
PROVIDERS: ADMIT Neurological Surgery; ATTEND Neurological Surgery
PROC: 0SG00AJ Fusion of Lumbar Vertebral Joint with Interbody Fusion Device, Posterior Approach, Anterior Column, Open Approach (ICD-10-PCS; 2017-04-19)
PROC: 0SG0071 Fusion of Lumbar Vertebral Joint with Autologous Tissue Substitute, Posterior Approach, Posterior Column, Open Approach (ICD-10-PCS; 2017-04-19)
PROC: 0ST20ZZ Resection of Lumbar Vertebral Disc, Open Approach (ICD-10-PCS; principal; 2017-04-19 08:15)
DX: M47.816 Spondylosis without myelopathy or radiculopathy, lumbar region (principal); I10 Essential (primary) hypertension; E78.5 Hyperlipidemia, unspecified; Z87.891 Personal history of nicotine dependence; N40.0 Benign prostatic hyperplasia without lower urinary tract symptoms
CPT/HCPCS: 72100; 76000; 80048; 85025; 86850; 86900; 86901; C1713; C9113; J0131; J0690; J1170; J1580; J2175; J2250; J2270; J2370; J2405; J3010; J3370; J3480; J7050; J7120; L0200; L0484